=== PATIENT | male | born 1955 | race Caucasian/White ===

== ENCOUNTER 2018-02-09 13:34 | Emergency (ER) | payer BC ==
[2018-02-09 14:13] VITALS: BP 124/77
--- NOTE | 2018-02-09 14:16 | UC ---
Laceration HPI - HPI Summary HPI Summary: 62 y/o male presents to the urgent care c/o scratching his left thumb w/ a mary nail today about 4 hrs ago. Pt states scratch is very superficial and he had mild bleeding which stopped when he cleaned the wound. He is concern w/ Tetanus vaccines since he can't recall when he had it. Pain is 0/10, he can move thumb w/o any problem. Pt denies fever,numbness or tingling over the left thumb, SOB, chest pain, abdominal pain,N/V/D. He has not taking any meds. - History Of Current Complaint Chief Complaint: Maria Alejandra Stated Complaint: SCRATCHED ON HAND BY MARY NAIL Time Seen by Provider: 02/09/18 14:15 Hx Obtained From: Patient Laceration Location: Finger - left thumb Mechanism Of Injury: Sharp Trauma Onset/Duration: Sudden Onset, Lasting Hours - 4hrs Severity: Mild Pain Intensity: 0 Pain Scale Used: 0-10 Numeric Aggravating Factors: Other: - tocuh Related History: Dominant Hand Right - Allergies/Home Medications Allergies/Adverse Reactions: Allergies Allergy/AdvReac Type Severity Reaction Status Date / Time Sulfa (Sulfonamide Allergy Hives Verified 02/09/18 14:09 Antibiotics) PMH/Surg Hx/FS Hx/Imm Hx Previously Healthy: Yes - Pt denies PMHX - Surgical History Surgical History: None - Family History Known Family History: Positive: Cardiac Disease, Hypertension - Social History Occupation: Employed Full-time Lives: With Family Alcohol Use: Rare Substance Use Type: None Smoking Status (MU): Former Smoker - Immunization History Most Recent Tetanus Shot: unknown Review of Systems Constitutional: Negative Skin: Other - superficial laceration of the left thumb w/ a mary nail Eyes: Negative ENT: Negative Respiratory: Negative Cardiovascular: Negative Gastrointestinal: Negative Genitourinary: Negative Motor: Negative Neurovascular: Negative Musculoskeletal: Negative Neurological: Negative Psychological: Negative All Other Systems Reviewed And Are Negative: Yes Physical Exam - Summary Physical Exam Summary: Vital Signs Reviewed: Yes General: well developed, well nourished male sitting in the examining table w/o any apparent distress Eye Exam: Normal Eyes: Positive: Conjunctiva Clear - PERRLA, EOMI, fundi grossly normal ENT: Positive: Normal ENT inspection, Hearing grossly normal, Pharynx normal, TMs normal Neck: Positive: Supple, Nontender, No Lymphadenopathy Respiratory: Positive: Chest non-tender, Lungs clear, Normal breath sounds, No respiratory distress Cardiovascular: Positive: RRR, No Murmur, Pulses Normal, Brisk Capillary Refill Abdomen Description: Positive: Nontender, No Organomegaly, Soft. Negative: CVA Tenderness (R), CVA Tenderness (L) Bowel Sounds: Positive: Present Musculoskeletal: Positive: Strength Intact, ROM Intact, No Edema Neurological: Positive: Alert, Muscle Tone Normal Psychological Exam: Normal Skin: Positive:left hand thenar eminence w/a discrete linear superficial laceration about 0.8cm in size, no bleeding, no foreign body observed. mild tenderness to palpation, . FROM of left hand and thumb, sensation intact, capillary refill brisk, and pulses WNL. Triage Information Reviewed: Yes Vital Signs: Initial Vital Signs Temp 98 F 02/09/18 14:07 Pulse 81 02/09/18 14:07 Resp 15 02/09/18 14:07 BP 124/77 02/09/18 14:07 Pulse Ox 100 02/09/18 14:07 Laceration Course/Dx - Course/Dx Course Of Treatment: 62 y/o male presents to the urgent care c/o scratching his left thumb w/ a mary nail today about 4 hrs ago. Pt states scratch is very superficial and he had mild bleeding which stopped when he cleaned the wound. He is concern w/ Tetanus vaccines since he can't recall when he had it. Pain is 0/10, he can move thumb w/o any problem. Pt denies fever,numbness or tingling over the left thumb, SOB, chest pain, abdominal pain,N/V/D. He has not taking any meds. Hx obtained. Pt w/ a discrete superficial linear laceration over the thenar eminence of the left hand about 0.8cm on examination.LACERATION PROCEDURE NOTE: . Copious irrigation was done with saline and the wound explored. There was no FB or deep structure injury noted. wound cleaned w/ Iodine swabs. No need for closure. Bacitracin applied over wound and dressed w/ sterile gauze.The Pt tolerated the procedure well without adverse effects. Neurovascular intact and FROM of finger. Tdap ordered and applied by nurse. Pt advised if any signs of infection develop to immediately return to the urgent care of PCP for further management and treatment. Pt understood and agreed and left the clinic ambulating A&Ox3. - Differential Dx - Laceration/Wound Differental Diagnoses: Abrasion, Cellulitis, Laceration, Puncture Wound, Tendon Laceration Provider Diagnoses: 1- Left hand discrete superficial linear laceration s/p mary nail Discharge - Sign-Out/Discharge Documenting (check all that apply): Discharge/Admit/Transfer - D/C home - Discharge Plan Condition: Stable Disposition: HOME Prescriptions: Bacitracin OINTMENT* 1 applic TOPICAL BID #1 tube Patient Education Materials: Abrasion (ED) Referrals: Xander Bauman MD [Primary Care Provider] - If Needed Additional Instructions: 1-Tetanus vaccine given today 2-Please apply topical antibiotic over the wound. Keep wound clean and dry 3-Take Ibuprofen or Tylenol PO q6-8hrs prn for pain or swelling. 4- If you develop fever or redness around your wound please return to the Urgent care or see your PCP for further treatment - Billing Disposition and Condition Condition: STABLE Disposition: Home
[2018-02-09] MEDS ORDERED: Tetan/Diph/Pertus SYR(Tdap)* 0.5 ML SYR(BOOSTRIX) use SYR IM ONE (14:21)
== END 2018-02-09 14:35 | disposition home or self-care (01) ==
LOC: UCCORT 13:34
DX: S60.312A Abrasion of left thumb, initial encounter (principal); W45.0XXA Nail entering through skin, initial encounter; Y92.9 Unspecified place or not applicable; Z23 Encounter for immunization; Z87.891 Personal history of nicotine dependence; Z88.0 Allergy status to penicillin
CPT/HCPCS: 90471; 90715; 99212; G0463